=== PATIENT | male | born 1975 | race Native Hawaiian/Other Pacific Islander ===

== ENCOUNTER 2018-01-22 16:25 | Outpatient (CLI) | payer BC | END 2018-01-22 20:47 | disposition home or self-care (01) | LOC: LABW 16:25 | DX: Z30.2 Encounter for sterilization (principal) | CPT/HCPCS: 89320 ==

== ENCOUNTER 2019-12-15 08:02 | Outpatient (CLI) | payer BC | END 2019-12-15 20:02 | disposition home or self-care (01) | LOC: CT 08:02 | DX: R22.2 Localized swelling, mass and lump, trunk (principal); Z98.890 Other specified postprocedural states; Z87.828 Personal history of other (healed) physical injury and trauma | CPT/HCPCS: 36415; 82565; 84520; Q9963 ==